=== PATIENT | female | born 2000 | race Two or more races ===

== ENCOUNTER 2021-12-02 12:42 | Emergency (ER) | payer SELFPAY ==
[~2021-12-02] VITALS: Ht 152.4 cm; Wt 54.4 kg
--- NOTE | 2021-12-02 13:18 | NUR ---
PT SEEN AND EVALUATED BY DR JACOB
[2021-12-02 13:45] LABS: *URINE HCG, QUAL NEG (NEGATIVE)
--- NOTE | 2021-12-02 15:02 | NUR ---
Patient discharged to home in stable condition. Written and verbal after care instructions given. Patient verbalizes understanding of instructions. Stressed follow up or return to ER for worsening s/s.
== END 2021-12-02 15:03 | disposition home or self-care (01) ==
LOC: ER 12:42
DX: M54.9 Dorsalgia, unspecified (principal); R42 Dizziness and giddiness; Z20.822 Contact with and (suspected) exposure to COVID-19; Z91.81 History of falling; R00.1 Bradycardia, unspecified
CPT/HCPCS: 72110; 84703; 93005; A4663